=== PATIENT | female | born 1965 | race Caucasian/White ===

== ENCOUNTER 2016-06-26 11:52 | Emergency (ER) | payer OTHER ==
[2016-06-26 12:02] VITALS: TEMP 98.3; BMI 26.2
--- NOTE | 2016-06-26 12:46 | PDOC ---
History of Present Illness - General Chief Complaint: Chest Pain Stated Complaint: CHESST TIGHTNESS Time Seen by Provider: 06/26/16 12:06 History Source: Patient Exam Limitations: No Limitations - History of Present Illness Initial Comments: 06/26/16 12:39 This pt is a 51 yo F with a past medical history of Celiac disease, hypothyroidism, Mitral valve prolapse who presents to the ER with a complaint of chest tightness. PT states that she has had an upper respiratory infection for the past 5 days. She had a cough yesterday, took mucinex. Awoke this morning feeling well. She went to work. While in a meeting, she developed midsternal chest tightness which resolved after several minutes without her intervention. She then walked at work and noted chest tightness again. She noted some improvement when she got outside Pt states that while in the ER the pain again occurred She has not had something similar in the past No radiation to the arm, jaw or back No diaphoresis No nausea or vomiting Pt unable to tell me about exertional symptoms. Pt denies chest wall trauma or bruising. Pt denies lower extremity edema. 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 Pt denies alcohol use, tobacco use, or recreational drug use. Pt denies past history of cardiac disease. Pt denies recent travel. PMH: Celiac disease, hypothyroidism, Mitral valve prolapse PSH: C section, oophorectomy, Meds: synthroid, MVI ALL: PCN --> rahs Social: denies tobacco use Family history: no early heart disease GENERAL/CONSTITUTIONAL: No: fever, chills, weakness, loss of appetite. HEAD, EYES, EARS, NOSE AND THROAT: No: change in vision, ear pain, discharge, sore throat, throat swelling. CARDIOVASCULAR: (+) chest pain No: lightheadedness, palpitations, syncope RESPIRATORY: No: cough, shortness of breath, wheezing, hemoptysis, stridor. GASTROINTESTINAL: No: nausea, vomiting, diarrhea, abdominal cramping, rectal bleeding, constipation. GENITOURINARY: No: dysuria, hematuria, frequency, urgency, flank pain. MUSCULOSKELETAL: No: back pain, neck pain, joint pain, muscle swelling or pain SKIN AND BREASTS: No: lesions, pallor, rash or easy bruising. NEUROLOGIC: No: headache, vertigo, paresthesias, weakness ENDOCRINE: No: unexplained weight gain or loss HEMATOLOGIC/LYMPHATIC: No: anemia, easy bleeding, swelling nodes. GENERAL: The patient is in no acute distress. HEAD: Normal with no signs of trauma. EYES: PERRLA, EOMI, sclera anicteric, conjunctiva clear. ENT: Ears normal, nares patent, oropharynx clear without exudates. Moist mucous membranes. NECK: Normal range of motion, supple without lymphadenopathy, JVD, or masses. LUNGS: Breath sounds equal, clear to auscultation bilaterally. No wheezes, and no crackles. HEART: Regular rate and rhythm, normal S1 and S2 without murmur, rub or gallop. ABDOMEN: Soft, nontender, normoactive bowel sounds. No guarding, no rebound. No masses palpable. EXTREMITIES: Normal range of motion, no edema. No clubbing or cyanosis. No erythema, or tenderness. NEUROLOGICAL: Cranial nerves II through XII grossly intact. Normal speech. No focal neurological deficits. MUSCULOSKELETAL: Back non-tender to palpation, no CVA tenderness SKIN: Warm, Dry, normal turgor, no rashes or lesions noted. Past History - Past Medical History Allergies/Adverse Reactions: Allergies Allergy/AdvReac Type Severity Reaction Status Date / Time Penicillins Allergy Rash Verified 06/26/16 11:55 Home Medications: Ambulatory Orders Multivitamin [Daily Vitamin] 1 each PO DAILY tablet 02/01/14 Cholecalciferol (Vitamin D3) [Vitamin D3] 1,000 unit PO 3 CAPS DAILY capsule Levothyroxine [Synthroid -] 25 mcg PO DAILY 06/26/16 Thyroid Disease: Yes (hypothyroid) - Surgical History Abdominal Surgery: Yes (removal of left ovary and tubal ligation.) - Psycho/Social/Smoking Cessation Hx Anxiety: No Suicidal Ideation: No Smoking History: Never smoked Information on smoking cessation initiated: No Hx Alcohol Use: No Drug/Substance Use Hx: No Substance Use Type: None *Physical Exam - Vital Signs Last Vital Signs Temp Pulse Resp BP Pulse Ox 98.3 F 80 18 149/81 100 06/26/16 11:57 06/26/16 11:57 06/26/16 11:57 06/26/16 11:57 06/26/16 11:57 Heart Score/ECG Review #1 ECG reviewed & interpreted by me at: 12:46 General ECG Interpretation: Sinus Rhythm, Normal Rate, Normal Intervals, No acute ischemic changes ED Treatment Course - LABORATORY CBC & Chemistry Diagram: 06/26/16 12:43 06/26/16 12:43 - RADIOLOGY Radiology Studies Ordered: Category Date Time Status CHEST PA & LAT [RAD] Stat Radiology 06/26/16 12:37 Ordered Medical Decision Making - Medical Decision Making 06/26/16 12:46 Will do: Labs, CXR, EKG Will re assess 06/26/16 13:24 Laboratory Tests 06/26/16 06/26/16 12:43 12:43 WBC 7.2 Hgb 10.9 Hct 33.8 Plt Count 318 Neutrophils % 68.2 Lymphocytes % 22.2 Sodium 139 Potassium 4.1 Chloride 104 Carbon Dioxide 27 BUN 12 Creatinine 0.7 Random Glucose 108 H 06/26/16 13:29 Laboratory Tests 06/26/16 12:43 Creatine Kinase 76 06/26/16 14:00 Laboratory Tests 06/26/16 12:43 Troponin I < 0.03 L 06/26/16 14:51 Pt not interested in staying in the hospital Pt does NOT think that she needs a repeat troponin as I have indicated I think is necessary Pt states she can follow up with Dr Montano Pt would like to have a rapid strep done as 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 Rapid strep negative Will discharge to home No evidence of pneumonia or bronchitis Clinical Impression: chest tightness *DC/Admit/Observation/Transfer Diagnosis at time of Disposition: Sensation of chest tightness - Discharge Dispostion Disposition: HOME Condition at time of disposition: Fair Admit: No - Patient Instructions Printed Discharge Instructions: DI for Atypical Chest Pain Additional Instructions: Kari If you continue to have similar or worsening symptoms please return IMMEDIATELY to the ER Please follow up with your primary care physician and Dr Montano as we discussed - Post Discharge Activity Work/School Note: Back to Work
[2016-06-26 13:01] LABS: BASOPHIL 0.6 % (0-2.0); EOSINOPHIL 2.8 % (0-4.5); MCH 27.7 pg (25.7-33.7); MCHC 32.3 g/dl (32.0-36.0); MEAN CELL VOLUME 85.5 fl (80-96); MEAN PLT VOLUME 6.8 fl (7.5-11.1); NEUTROPHILS 68.2 % (42.8-82.8); PLATELET COUNT 318 K/MM3 (134-434); RDW 13.2 % (11.6-15.6); WHITE BLOOD COUNT 7.2 K/mm3 (4.0-10.0)
[2016-06-26 13:13] LABS: ALBUMIN 3.9 g/dl (3.5-5.0); ALK PHOS 46 U/L (32-92); ANION GAP 8 (8-16); BILIRUBIN,TOTAL 0.6 mg/dl (0.2-1.0); CALCIUM 9.3 mg/dl (8.4-10.2); CO2 27 mmol/L (22-28); CREATININE 0.7 mg/dl (0.6-1.3); GLUCOSE,RANDOM 108 mg/dl (74-106); SGOT/AST 23 U/L (10-42); SGPT/ALT 14 U/L (10-40); TOT PROT 6.9 g/dl (6.4-8.3)
[2016-06-26 13:22] LABS: CPK(DFH) 76 IU/L (26-140)
[2016-06-26 13:59] LABS: TROPONIN I (DFP) < 0.03 ng/ml (0.03-0.50)
[2016-06-26 15:06] VITALS: BP 143/59; PULSE 81
--- NOTE | 2016-06-27 12:29 | EKG ---
Test Reason : Blood Pressure : / mmHG Vent. Rate : 076 BPM Atrial Rate : 076 BPM P-R Int : 166 ms QRS Dur : 084 ms QT Int : 396 ms P-R-T Axes : 025 032 006 degrees QTc Int : 445 ms NORMAL SINUS RHYTHM NORMAL ECG NO PREVIOUS ECGS AVAILABLE Confirmed by JENNY LEWIS MD ([id number]) on 06/27/2016 12:28:40 PM Referred By: OSITO WALKER Confirmed By:JENNY LEWIS MD
== END 2016-06-26 15:05 | disposition home or self-care (01) ==
LOC: FER 11:52
DX: R07.89 Other chest pain (principal); K90.0 Celiac disease; E03.9 Hypothyroidism, unspecified; I34.1 Nonrheumatic mitral (valve) prolapse
CPT/HCPCS: 36415; 71020-TC; 80053; 82550; 84484; 85025; 87070; 87430; 93005; 99282-25